=== PATIENT | male | born 1945 | race Two or more races ===

== ENCOUNTER 2024-01-16 08:53 | Inpatient (IN) | payer OTHER ==
[~2024-01-16] VITALS: Ht 172.7 cm; Wt 116.0 kg
[~2024-01-16 08:53] MED LIST: AZIT-43 PO; TRAZ-227 PO
[2024-01-16] MEDS: SODIUM CHLORIDE 0.9% 500 ML IV ONE (09:41)
[2024-01-16] MEDS: ONDANSETRON HCL 4 MG/2 ML VIAL IV ONE (09:46)
[2024-01-16 10:09] LABS: Eosinophils # (auto) 0 10 ^3/uL (0-0.8); Eosinophils % (auto) 0.3 % (0.0-7.0); Hemoglobin 13.1 g/dL (13.5-17.5); Lymphocytes # (auto) 0.4 10 ^3/uL (0.4-5.4); Monocytes # (auto) 0.6 10 ^3/uL (0-1.3); Neutrophils # (auto) 9.5 10 ^3/uL (1.6-8.6); White Blood Cell 10.6 10^3/uL (4.4-10.8)
[2024-01-16 10:12] LABS: Basophils # (auto) 0 10 ^3/uL (0-0.2); Basophils % (auto) 0.4 % (0.0-2.0); Hematocrit 36.4 % (41.0-53.0); Mean Corpuscular Hemoglobin 34.9 pg (28.0-32.0); Mean Corpuscular Hgb Conc. 36.1 g/dL (32.0-36.0); Mean Corpuscular Volume 96.7 fL (80.0-100.0); Monocytes % (auto) 5.6 % (0.0-12.0); Neutrophils % (auto) 89.7 % (37.0-80.0); Platelet Count (auto) 140 10^3/uL (140-450); Red Blood Cells 3.77 10^6/uL (4.5-5.90); Red Cell Distribution Width 12.3 % (11.8-14.3)
[2024-01-16 10:21] VITALS: PULSE 74; RESP 22; O2SAT 97
[2024-01-16 10:28] LABS: Alanine Aminotransferase 35 U/L (7-40); Alkaline Phosphatase 38 U/L (46-116); Anion Gap 8 (5-15); BUN/Creatinine Ratio 15.6 (10.0-20.0); Blood Urea Nitrogen 15 mg/dL (9-23); Calcium 8.5 mg/dL (8.7-10.4); Carbon Dioxide 22 mmol/L (20-30); Chloride 100 mmol/L (98-107); Glucose 152 mg/dL (74-106); Lipase 35 U/L (12-53); Potassium 3.7 mmol/L (3.5-5.1); Sodium 130 mmol/L (136-145)
[2024-01-16 10:29] LABS: Albumin 3.9 g/dL (3.2-4.8); Aspartate Aminotransferase 34 U/L (13-40); Bilirubin, Total 1.4 mg/dL (0.2-1.0); Total Protein 6.6 g/dL (5.7-8.2)
[2024-01-16 11:05] LABS: COVID19 ANTIGEN SOFIA FIA NEGATIVE (NEGATIVE); Rapid Influenza A Negative (Negative); Rapid Influenza B Negative (Negative)
[2024-01-16 11:28] LABS: Urine Bacteria None Seen /hpf (None Seen)
[2024-01-16 11:35] LABS: Urine Blood 1+ /uL (Negative); Urine Clarity Clear (Clear); Urine Color Yellow (Yellow); Urine Mucus FEW (None Seen); Urine Protein, UAD 1+ (Negative); Urine Specific Gravity 1.022 (1.001-1.035); Urine Urobilinogen Normal (Negative); Urine WBC <1 /hpf (0 - 3)
[2024-01-16] MEDS ORDERED: ALBUTEROL SULF 2.5 MG/0.5ML(0.5%) NEB SOLN NEB PRN (14:15)
[2024-01-16] MEDS ORDERED: ONDANSETRON HCL 4 MG/2 ML VIAL IV PRN (14:15)
[2024-01-16] MEDS ORDERED: DOCUSATE SOD 100 MG CAP PO PRN (14:15)
[2024-01-16] MEDS ORDERED: IPRATROPIUM BROM 0.5 MG/2.5ML INH SOL NEB PRN (14:15)
[2024-01-16] MEDS ORDERED: HYDROcodone-ACET 5/325MG TAB PO PRN (14:15)
[2024-01-16] MEDS: SODIUM CHLORIDE 0.9% 1,000 ML IV SCH (14:31)
[2024-01-16] MEDS ORDERED: MORPHINE SULFATE INJ 2 MG/ml SYRG IV PRN (15:00)
[2024-01-16] MEDS ORDERED: NITROGLYCERIN 0.4 MG SL TAB SL PRN (15:00)
[2024-01-16 19:25] VITALS: PULSE 76; RESP 17; O2SAT 97
[2024-01-16] MEDS: ACETAMINOPHEN 325 MG TAB PO PRN (20:45)
[2024-01-17] VITALS (8 sets, daily range): BP systolic 108–134; BP diastolic 48–63; PULSE 59–81; RESP 17–22; TEMP 98–100; O2SAT 93–99
[2024-01-17 05:58] LABS: Basophils # (auto) 0 10 ^3/uL (0-0.2); Basophils % (auto) 0.1 % (0.0-2.0); Eosinophils # (auto) 0.1 10 ^3/uL (0-0.8); Lymphocytes # (auto) 0.6 10 ^3/uL (0.4-5.4); Monocytes # (auto) 0.6 10 ^3/uL (0-1.3); Neutrophils # (auto) 8.2 10 ^3/uL (1.6-8.6); White Blood Cell 9.5 10^3/uL (4.4-10.8)
[2024-01-17 06:01] LABS: Eosinophils % (auto) 0.7 % (0.0-7.0); Hematocrit 36.3 % (41.0-53.0); Hemoglobin 13.1 g/dL (13.5-17.5); Lymphocytes % (auto) 6.4 % (10.0-50.0); Mean Corpuscular Hemoglobin 35.4 pg (28.0-32.0); Mean Corpuscular Hgb Conc. 35.9 g/dL (32.0-36.0); Mean Corpuscular Volume 98.6 fL (80.0-100.0); Monocytes % (auto) 6.7 % (0.0-12.0); Neutrophils % (auto) 86.1 % (37.0-80.0); Platelet Count (auto) 142 10^3/uL (140-450); Red Blood Cells 3.68 10^6/uL (4.5-5.90); Red Cell Distribution Width 12.3 % (11.8-14.3)
[2024-01-17 06:16] LABS: Alanine Aminotransferase 37 U/L (7-40); Aspartate Aminotransferase 35 U/L (13-40); Bilirubin, Total 1.2 mg/dL (0.2-1.0); Chloride 102 mmol/L (98-107); Sodium 132 mmol/L (136-145); Total Protein 6.5 g/dL (5.7-8.2)
[2024-01-17 06:19] LABS: Anion Gap 5 (5-15); Calcium 8.8 mg/dL (8.7-10.4); Carbon Dioxide 25 mmol/L (20-30)
[2024-01-17 06:24] LABS: Alkaline Phosphatase 40 U/L (46-116); BUN/Creatinine Ratio 19.3 (10.0-20.0); Blood Urea Nitrogen 17 mg/dL (9-23); Glucose 109 mg/dL (74-106)
[2024-01-17] MEDS ORDERED: IBUP-1455 PO (15:16)
[2024-01-17] MEDS ORDERED: GABA-339 PO (15:16)
[2024-01-18] VITALS (10 sets, daily range): BP systolic 117–142; BP diastolic 51–65; PULSE 61–72; RESP 15–19; TEMP 98–98.9; O2SAT 16–99
[2024-01-18] MEDS: IOHEXOL 350 MG/ML 100ML IJ ONE (08:31)
[2024-01-18] MEDS ORDERED: GABA800T97 PO (09:32)
[2024-01-18] MEDS ORDERED: ALBUTEROL SULF 2.5 MG/0.5ML(0.5%) NEB SOLN NEB PRN (11:45)
[2024-01-18] MEDS: AZITHROMYCIN 500MG/ 250ML 250 ML IV SCH (13:55)
[2024-01-19] VITALS (10 sets, daily range): BP systolic 112–147; BP diastolic 54–75; PULSE 57–76; RESP 17–19; TEMP 97.3–99.3; O2SAT 93–98
[2024-01-20] VITALS (10 sets, daily range): BP systolic 124–145; BP diastolic 52–73; PULSE 61–74; RESP 17–18; TEMP 97.9–98.6; O2SAT 95–97
[2024-01-20 19:51] LABS: Basophils # (auto) 0 10 ^3/uL (0-0.2); Hematocrit 36.7 % (41.0-53.0); Hemoglobin 12.9 g/dL (13.5-17.5); Lymphocytes # (auto) 0.7 10 ^3/uL (0.4-5.4); Mean Corpuscular Hgb Conc. 35.2 g/dL (32.0-36.0); Monocytes # (auto) 0.6 10 ^3/uL (0-1.3)
[2024-01-20 19:52] LABS: Basophils % (auto) 0.4 % (0.0-2.0); Eosinophils # (auto) 0.1 10 ^3/uL (0-0.8); Eosinophils % (auto) 1.6 % (0.0-7.0); Lymphocytes % (auto) 8.7 % (10.0-50.0); Mean Corpuscular Hemoglobin 34.1 pg (28.0-32.0); Monocytes % (auto) 7.1 % (0.0-12.0); Neutrophils % (auto) 82.2 % (37.0-80.0); Platelet Count (auto) 214 10^3/uL (140-450); Red Blood Cells 3.78 10^6/uL (4.5-5.90); Red Cell Distribution Width 12.2 % (11.8-14.3); White Blood Cell 8.5 10^3/uL (4.4-10.8)
[2024-01-20 20:12] LABS: Alanine Aminotransferase 69 U/L (7-40); Albumin 3.8 g/dL (3.2-4.8); Alkaline Phosphatase 46 U/L (46-116); Anion Gap 4 (5-15); Aspartate Aminotransferase 49 U/L (13-40); BUN/Creatinine Ratio 13.6 (10.0-20.0); Bilirubin, Total 0.7 mg/dL (0.2-1.0); Blood Urea Nitrogen 11 mg/dL (9-23); Calcium 9.2 mg/dL (8.7-10.4); Carbon Dioxide 25 mmol/L (20-30); Chloride 102 mmol/L (98-107); Glucose 179 mg/dL (74-106); Sodium 131 mmol/L (136-145); Total Protein 6.5 g/dL (5.7-8.2)
[2024-01-20] MEDS: cefTRIAXone 1GM/50ML D5W 50 ML IV SCH (20:57)
[2024-01-21] VITALS (11 sets, daily range): BP systolic 123–140; BP diastolic 59–75; PULSE 56–71; RESP 16–18; TEMP 97.7–98.3; O2SAT 95–100
[2024-01-21] MEDS ORDERED: DEXTROSE (50%) 50ML SYRG IV PRN (10:30)
[2024-01-21] MEDS ORDERED: guaiFENesin 200 MG/10 ML UD PO PRN (10:30)
[2024-01-21] MEDS: ACCU-CHEK COMFORT CURVE STRIP VI SCH (11:30)
[2024-01-21] MEDS: InsuLIN REG 1unit/0.01ml Soln (100units/ml) SC SCH (11:30)
[2024-01-22] VITALS (11 sets, daily range): BP systolic 105–149; BP diastolic 54–73; PULSE 59–72; RESP 14–20; TEMP 97.3–98.3; O2SAT 93–99
[2024-01-22 09:40] LABS: Basophils # (auto) 0 10 ^3/uL (0-0.2); Basophils % (auto) 0.2 % (0.0-2.0); Eosinophils # (auto) 0.2 10 ^3/uL (0-0.8); Eosinophils % (auto) 3.7 % (0.0-7.0); Hematocrit 37.8 % (41.0-53.0); Hemoglobin 13.3 g/dL (13.5-17.5); Lymphocytes # (auto) 0.7 10 ^3/uL (0.4-5.4); Lymphocytes % (auto) 11.7 % (10.0-50.0); Mean Corpuscular Hemoglobin 34.5 pg (28.0-32.0); Mean Corpuscular Hgb Conc. 35.2 g/dL (32.0-36.0); Mean Corpuscular Volume 98.1 fL (80.0-100.0); Monocytes # (auto) 0.6 10 ^3/uL (0-1.3); Neutrophils # (auto) 4.6 10 ^3/uL (1.6-8.6); Neutrophils % (auto) 75.4 % (37.0-80.0); Platelet Count (auto) 259 10^3/uL (140-450); Red Blood Cells 3.85 10^6/uL (4.5-5.90); Red Cell Distribution Width 12.2 % (11.8-14.3); White Blood Cell 6.2 10^3/uL (4.4-10.8)
[2024-01-22 10:03] LABS: Alanine Aminotransferase 60 U/L (7-40); Albumin 3.8 g/dL (3.2-4.8); Alkaline Phosphatase 47 U/L (46-116); Anion Gap 5 (5-15); Aspartate Aminotransferase 37 U/L (13-40); BUN/Creatinine Ratio 15.5 (10.0-20.0); Blood Urea Nitrogen 13 mg/dL (9-23); Calcium 9.3 mg/dL (8.7-10.4); Carbon Dioxide 25 mmol/L (20-30); Chloride 101 mmol/L (98-107); Glucose 158 mg/dL (74-106); Magnesium 2.1 mg/dL (1.6-2.6); Potassium 4.2 mmol/L (3.5-5.1); Sodium 131 mmol/L (136-145)
[2024-01-22 10:04] LABS: Bilirubin, Total 0.5 mg/dL (0.2-1.0); Total Protein 6.6 g/dL (5.7-8.2)
[2024-01-23] VITALS (10 sets, daily range): BP systolic 107–130; BP diastolic 56–77; PULSE 61–68; RESP 18–20; TEMP 97.7–98.3; O2SAT 93–98
[2024-01-24] VITALS (12 sets, daily range): BP systolic 116–144; BP diastolic 62–83; PULSE 63–74; RESP 16–20; TEMP 97.8–98.5; O2SAT 94–99
[2024-01-25] VITALS (10 sets, daily range): BP systolic 118–150; BP diastolic 56–77; PULSE 61–76; RESP 16–20; TEMP 97.5–98.1; O2SAT 94–98
[2024-01-26] VITALS (9 sets, daily range): BP systolic 121–128; BP diastolic 60–78; PULSE 62–71; RESP 17–18; TEMP 98.1–98.4; O2SAT 94–97
== END 2024-01-26 19:40 | disposition home health service (06) | DRG 871 ==
LOC: ER 09:11 → TELE 15:00 → TELE-CENTR 01-17 03:20
PROVIDERS: ADMIT Nurse Practitioner Family; ATTEND Internal Medicine Nephrology
DX: A41.9 Sepsis, unspecified organism (principal); J15.69 Pneumonia due to other Gram-negative bacteria; J96.01 Acute respiratory failure with hypoxia; Z20.822 Contact with and (suspected) exposure to COVID-19; E11.65 Type 2 diabetes mellitus with hyperglycemia; E11.51 Type 2 diabetes mellitus with diabetic peripheral angiopathy without gangrene; E66.9 Obesity, unspecified; Z68.34 Body mass index [BMI] 34.0-34.9, adult; Z86.19 Personal history of other infectious and parasitic diseases; Z79.4 Long term (current) use of insulin
CPT/HCPCS: 36415; 71045; 71275; 80053; 81001; 82962; 83036; 83690; 83735; 84484; 84550; 85025; 87040; 87086; 87426; 87804; 96361; 96374; 97163; 99291; G0378; J1815; J2405